=== PATIENT | male | born 1990 | race Caucasian/White ===

== ENCOUNTER 2022-02-11 22:38 | Emergency (ER) | payer MEDICAID ==
[~2022-02-11] VITALS: Ht 180.3 cm; Wt 72.6 kg
[2022-02-11] MEDS ORDERED: METO25TA6 PO (23:02)
[2022-02-11 23:31] LABS: HEMATOCRIT 32.9 % (36.7-47.1); MEAN CORPUSCULAR HEMOGLOBIN 30.3 uug (23.8-33.4); MEAN CORPUSCULAR VOLUME 90.7 fL (73.0-96.2); PLATELET COUNT (AUTO) 194 K/uL (152-348)
[2022-02-11 23:35] LABS: CARBON DIOXIDE 27 mmol/L (21-32); CHLORIDE 105 mmol/L (98-107); CREATININE 1.1 mg/dL (0.6-1.3); GLUCOSE 96 mg/dL (74-106); POTASSIUM 3.7 mmol/L (3.5-5.1); UREA NITROGEN, BLOOD 17 mg/dL (7-18)
--- NOTE | 2022-02-11 23:48 | NUR ---
EKG done, NSR noted, IV SL 20G on R AC
[2022-02-12 00:01] LABS: MAGNESIUM 1.8 mg/dL (1.8-2.4)
[2022-02-12] MEDS ORDERED: THIAMINE HCL 100 MG TABLET PO ONE (00:45)
[2022-02-12] MEDS ORDERED: THIAMINE HCL 100 MG TABLET ONE (01:01)
--- NOTE | 2022-02-12 01:30 | NUR ---
Offered due med, pt. in deep sleep at this time. was not able to take the medicine at this time.
--- NOTE | 2022-02-12 05:39 | NUR ---
D/c IV. Patient discharged to home in stable condition. Written and verbal after care instructions given. Patient verbalizes understanding of instructions. Stressed follow up or return to ER for worsening s/s.
[2022-02-12 05:40] VITALS: BP 122/80
== END 2022-02-12 05:41 | disposition home or self-care (01) ==
LOC: ER 22:40
DX: F10.121 Alcohol abuse with intoxication delirium (principal); Y90.8 Blood alcohol level of 240 mg/100 ml or more; I42.9 Cardiomyopathy, unspecified; I11.9 Hypertensive heart disease without heart failure
CPT/HCPCS: 36415; 71045; 83735; 84484; 85025; 93005; G0480